=== PATIENT | male | born 1955 | race Caucasian/White ===

== ENCOUNTER → 2018-03-11 | Outpatient (CLI) | payer OTHER | LOC: LAB 09:57 | PROVIDERS: ATTEND Internal Medicine Rheumatology | DX: M12.80 Other specific arthropathies, not elsewhere classified, unspecified site (principal) | CPT/HCPCS: 36415; 86480 ==

== ENCOUNTER → 2018-06-11 | Outpatient (CLI) | payer OTHER ==
[2018-06-11 14:29] LABS: URIC ACID 5.3 MG/DL (2.6-7.2)
== END ==
LOC: LAB 13:26
PROVIDERS: ATTEND Internal Medicine Rheumatology
DX: M1A.0720 Idiopathic chronic gout, left ankle and foot, without tophus (tophi) (principal)
CPT/HCPCS: 36415; 84550; 85652; 86141

== ENCOUNTER → 2018-06-17 | Outpatient (CLI) | payer OTHER ==
[2018-06-17 13:04] LABS: BILIRUBIN,URINE NEGATIVE (NEGATIVE); CLARITY,URINE CLEAR; COLOR,URINE YELLOW; GLUCOSE, URINE (UA) NEGATIVE (NEGATIVE); KETONES,URINE NEGATIVE (NEGATIVE); LEUKOCYTE ESTERASE ,URINE 1+ (NEGATIVE); NITRITE,URINE NEGATIVE (NEGATIVE); PH,URINE 7 (5-9); PROTEIN,URINE 1+ (NEGATIVE); UROBILINOGEN,URINE NORMAL (NORMAL)
[2018-06-17 13:40] LABS: BACTERIA,URINE NEGATIVE /HPF; HYALINE CASTS, URINE RARE /LPF; WBC,URINE RARE /HPF
--- NOTE | 2018-06-17 14:04 | Diagnostic Imaging Report ---
INDICATION: Osteoarthritis. TIME OF EXAMINATION: 01:52 p.m. FINDINGS: Curvature is normal. There is multilevel degenerative disc disease. There appear to be flowing osteophytes anteriorly at all levels. Prevertebral tissues are normal. Odontoid appears intact. There is multilevel facet arthropathy. IMPRESSION: Cervical spondylosis. No acute bony abnormality is detected. Dictated by: Dictated on workstation # [id number]
== END ==
LOC: LAB 12:43
PROVIDERS: ATTEND Internal Medicine Rheumatology
DX: N50.811 Right testicular pain (principal); M47.22 Other spondylosis with radiculopathy, cervical region
CPT/HCPCS: 72040; 81000; 87088

== ENCOUNTER → 2018-06-22 | Outpatient (CLI) | payer OTHER ==
--- NOTE | 2018-06-22 10:52 | Diagnostic Imaging Report ---
Indication: Scrotal pain. Technique: Multiple real time grayscale images were obtained of the scrotum in various projections bilaterally. Duplex Doppler and color Doppler images were also obtained. Findings Right testicle measures 4.4 x 2.3 x 2.6 cm. Left testicle measures 4 x 2.2 x 2 cm. Both testicles demonstrate normal homogeneous echogenicity and blood flow. There is diffuse enlargement of the right epididymis. Scinti images demonstrate what appears be the filarial dance sign. There does not appear to be any hyperemia of the epididymis. Left epididymis unremarkable. No hydrocele. Impression: Scinti images appear to demonstrate the filarial dance sign in the right epididymis. 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 Recommend clinical correlation. Otherwise unremarkable scrotal ultrasound. Findings are conveyed directly to the referring clinician via telephone. Dictated by: Dictated on workstation # [id number]
== END ==
LOC: RAD 08:56
PROVIDERS: ATTEND Internal Medicine Rheumatology
DX: N50.811 Right testicular pain (principal)
CPT/HCPCS: 76870

== ENCOUNTER → 2018-12-28 | Outpatient (CLI) | payer BC | LOC: LAB 16:32 | PROVIDERS: ATTEND Urology | DX: R97.20 Elevated prostate specific antigen [PSA] (principal) | CPT/HCPCS: 36415; 84153 ==